=== PATIENT | male | born 2005 | race Caucasian/White ===

== ENCOUNTER 2024-12-02 17:29 | Emergency (ER) | payer OTHER | END 2024-12-02 19:50 | disposition home or self-care (01) | LOC: JD.ED 17:29 | DX: S70.11XA Contusion of right thigh, initial encounter (principal); S89.91XA Unspecified injury of right lower leg, initial encounter; F17.210 Nicotine dependence, cigarettes, uncomplicated; V80.010A Animal-rider injured by fall from or being thrown from horse in noncollision accident, initial encounter; Y93.52 Activity, horseback riding | CPT/HCPCS: 73552; 73562; 99283; A9270; 99282 ==